=== PATIENT | female | born 1995 | race Caucasian/White ===

== ENCOUNTER → 2024-01-14 07:12 | Outpatient (REF) | payer OTHER, SELFPAY | LOC: HWRAD 07:12 | PROVIDERS: ATTENDING PHYSICIAN Nurse Practitioner Adult Health | DX: R10.31 Right lower quadrant pain (principal) | CPT/HCPCS: 76700 ==

== ENCOUNTER 2024-06-15 21:53 | Emergency (ER) | payer OTHER, SELFPAY ==
[2024-06-15 21:54] VITALS: BP 112/74
[2024-06-15 22:29] LABS: Blood Urea Nitrogen 11 mg/dl (7-17); Calcium 9.9 mg/dl (8.4-10.2); Carbon Dioxide 25 mmol/L (22-30); Chloride 100 mmol/L (98-107); Glucose 99 mg/dl (70-99); Potassium 3.9 mmol/L (3.5-5.1); Sodium 138 mmol/L (135-145); eGFR > 60.00
[2024-06-15 22:47] LABS: Hematocrit 37.5 % (37.0-47.0); Hemoglobin 14.1 g/dL (12.0-16.0); Mean Corp Hgb Conc. 37.6 g/dL (33.0-37.0); Mean Corpuscular Hgb 32.8 pg (27.0-31.0); Mean Corpuscular Volume 87.2 fL (81.0-99.0); Mean Platelet Volume 12.2 fL (7.4-10.4); Platelet Count 182 10^3/uL (130-400); Red Cell Dist. Width 12.1 % (11.5-14.5)
[2024-06-15 23:32] LABS: Beta HCG Quantitative > 300000.00 mIU/ml
[2024-06-16 00:21] VITALS: BP 107/53
[2024-06-16 00:29] VITALS: BMI 19.9
[2024-06-16 01:00] VITALS: BP 104/58
--- NOTE | 2024-06-16 01:02 | ED.GENMED ---
History of Present Illness
General
Chief Complaint: Abdominal Symptoms
Time Seen by Provider: 06/16/24 00:13
History of Present Illness
History of Present Illness:
Patient is a 28-year-old G3, P1 at 7 weeks presenting to the emergency department nausea vomiting. Patient states that during her first she also had nausea and vomiting. She does not have OB. Her appointment is scheduled for
next week. For the past few weeks she has been dealing with nausea vomiting. She was prescribed Diclegis which did not work. 2 days ago she was started on Zofran which also did not work. She does state that she tolerates p.o. but does have 1
episode of emesis a day. No abdominal pain. No diarrhea. She believes that she lost a few pounds during this .
Phy Exam
Physical Exam
Physical Exam:
GENERAL: in no acute distress
HEENT: normocephalic, extraocular movements intact, moist oral mucosa
NECK: normal inspection
RESPIRATORY: no respiratory distress, clear to auscultation bilaterally
CARDIOVASCULAR: regular rate and rhythm
ABDOMEN/: soft, non-distended, non-tender to palpation, no rebound or guarding
EXTREMITIES: non-tender, no edema/swelling
NEUROLOGIC: awake and alert, moves all extremities
SKIN: warm
Course
Orders/Labs/Results
Orders:
Orders
06/15/24 22:04
Basic Metabolic Panel Urgent
Complete Blood Count/No Diff Urgent
HCG, Beta Quantitative [Beta HCG Quantitative] Urgent
Is this a screen?: No
06/16/24 00:58
0.9% Sodium Chloride 1000 ml [Nss] 1,000 ml IV BOLUS
Ondansetron Injectable [Zofran] 4 mg IV NOW STA
06/16/24 00:59
Ondansetron Injectable [Zofran] 4 mg .ROUTE .[facility]
06/16/24 01:18
Urinalysis Reflex To Culture Urgent
Date Specimen was Collected: 06/16/24
Time Specimen was Collected: :16
Urine Microscopic Reflex Cult Urgent
Urine Culture Urgent
MARIBEL Source: U
Specimen Description:
Date Specimen was Collected: 06/16/24
Time Specimen was Collected: 01:16
Abnormal Lab Results
06/15/24 06/16/24
22:04 01:18
MCH 32.8 H pg
(27.0-31.0)
MCHC 37.6 H g/dL
(33.0-37.0)
MPV 12.2 H fL
(7.4-10.4)
Urine Ketones 3+ A
(Negative)
Leukocyte Esterase Rfl 2+ A
(Negative)
Urine RBC 3-6 A /HPF
(0-2)
Urine WBC (Reflex) 30-40 A /HPF
(0-5)
Urine Bacteria (Reflex) Moderate A
(Negative)
06/15/24 22:04
06/15/24 22:04
Vital Signs
Initial and Last Documented VS:
Initial Vital Signs
Temp Pulse Resp BP Pulse Ox
98.3 F 68 22 112/74 98
06/15/24 21:54 06/15/24 21:54 06/15/24 21:54 06/15/24 21:54 06/15/24 21:54
Last Documented Vital Signs
Temp Pulse Resp BP Pulse Ox
98.3 F 65 16 104/58 100
06/15/24 21:54 06/16/24 01:15 06/16/24 01:15 06/16/24 01:00 06/16/24 01:15
MDM/Problems Addressed
Differential Diagnosis Includes:
Patient is a 28-year-old female G3, P1 at 7 weeks presenting to the emergency department with nausea vomiting. Vitals unremarkable and exam does show a soft benign abdomen with slightly dry oral mucosa. Likely nausea vomiting rectal
related to . It is reassuring the abdominal exam is benign. Blood work obtained prior to evaluation shows normal electrolytes. Will obtain urine to evaluate for ketones as well as asymptomatic bacteriuria. Will give IV fluids. After
shared decision making we will give IV Zofran as she has tolerated that in the past before.
*Critical Care Note
Total Time (30-74mins, 75-104mins- exclusive of procedures): Not Applicable
Update Note
Update Note:
On reevaluation patient resting comfortably. She was able to tolerate p.o. Urine does show ketones. There are significant squamous epithelial cells. We did discuss about repeating urine however at this time patient would prefer to be discharged
as she is following up with her OB in a few days and will have repeat urine testing done at that time. We did discuss about starting antibiotics however given the vomiting and the stomach upset patient would prefer to hold off unless if absolutely
needed. Strict return precautions given. Will discharge at this time. She does have Zofran and Diclegis prescriptions at home.
ED Attending Note
-
Portions of this chart may have been created with voice recognition software.� Occasional wrong word or��sound alike� substitutions may have occurred due to the inherent limitations of voice recognition software.
Discharge Plan
Departure
Patient Disposition: Home (Routine Discharge)
Date of Disposition: 06/16/24
Time of Disposition: 02:02
Patient with high blood pressure during this ER visit?: No
Discharge Problem:
Vomiting during
Instructions: Morning Sickness (DC)
Prescriptions:
No Action
Vitamin Tablet
1 tab PO DAILY
acetaminophen 325 MG tablet
650 mg PO Q4HPRN PRN (Reason: mild pain) 0RF
ibuprofen 600 MG tablet
600 mg PO Q4HPRN PRN (Reason: cramps) 0RF
Referrals:
Beena Bell CRNP [Family Provider] -
Interventions
Interventions:
*Risk Screen - Suicide Last Done: 06/15/24 21:54
*General Assessment Last Done: 06/16/24 00:23
*Neglect/Abuse Screening Last Done: 06/15/24 21:54
ED- Fall Risk Assessment Last Done: 06/16/24 00:23
*ED COVID-19 Vaccine History Last Done: 06/16/24 00:23
DV-Pkntni-Osbekkizmx Assessment Last Done: 06/16/24 00:23
Discharge Date and Time
Print Language: AUSTRALIAN
[2024-06-16] MEDS: ZOFRAN 4 MG IV (01:13)
[2024-06-16] MEDS: NSS 1000 IV (01:13)
[2024-06-16 01:25] LABS: Urine Albumin Negative (Neg - Trace); Urine Bilirubin Negative (Negative); Urine Character Slightly Cloudy (Clear); Urine Color Yellow; Urine Glucose Negative (Negative); Urine Ketone 3+ (Negative); Urine Leukocyte 2+ (Negative); Urine Nitrite Negative (Negative); Urine Occult Blood Negative (Negative); Urine Specific Gravity 1.015 (<1.030); Urine Urobilinogen Negative (Neg - 1+); Urine pH 6.5 (5.0-9.0)
[2024-06-16 01:33] LABS: Urine Squamous Cell >30 /LPF (Few)
[2024-06-16 01:35] LABS: Urine Bacteria Moderate (Negative); Urine White Cell 30-40 /HPF (0-5)
[2024-06-16 02:00] VITALS: BP 99/59
== END 2024-06-16 02:15 | disposition home or self-care (01) ==
LOC: EMR 21:53
PROVIDERS: Student in an Organized Health Care Education/Training Program; EMERGENCY PHYSICIAN Student in an Organized Health Care Education/Training Program; FAMILY PHYSICIAN Nurse Practitioner Adult Health
DX: O21.9 Vomiting of pregnancy, unspecified (principal); Z3A.01 Less than 8 weeks gestation of pregnancy
CPT/HCPCS: 96374; 96361; 99284; 80048; 81003; 81015; 84702; 85027; 87086

== ENCOUNTER 2024-06-19 18:41 | Emergency (ER) | payer OTHER, SELFPAY ==
[2024-06-19 18:41] VITALS: BMI 21.4
[2024-06-19 18:52] VITALS: BP 107/74
[2024-06-19 20:46] LABS: Urine Albumin Negative (Neg - Trace); Urine Bilirubin Negative (Negative); Urine Character Clear (Clear); Urine Color Yellow; Urine Glucose Negative (Negative); Urine Ketone Negative (Negative); Urine Leukocyte Negative (Negative); Urine Nitrite Negative (Negative); Urine Occult Blood Negative (Negative); Urine Urobilinogen Negative (Neg - 1+)
[2024-06-19 21:01] LABS: ALT (SGPT) 16 U/L (0-35); AST (SGOT) 23 U/L (14-36); Albumin 4.7 g/dl (3.5-5.0); Alkaline Phosphatase 32 U/L (38-126); Blood Urea Nitrogen 10 mg/dl (7-17); Calcium 9.8 mg/dl (8.4-10.2); Carbon Dioxide 26 mmol/L (22-30); Chloride 101 mmol/L (98-107); Glucose 103 mg/dl (70-99); Potassium 3.5 mmol/L (3.5-5.1); Sodium 141 mmol/L (135-145); Total Bilirubin 0.3 mg/dl (0.2-1.3); Total Protein 7.4 g/dl (6.3-8.2); eGFR > 60.00
[2024-06-19 22:05] LABS: % Basophils 0.6 % (0-2); % Eosinophils 0.9 % (0-6); % Immature Granulocytes 0.1 % (0-0.5); % Lymphocytes 37.4 % (20.5-51.1); % Monocytes 7.6 % (1.7-9.3); % Neutrophils 53.4 % (42.2-75.2); Absolute Eosinophils 0.1 10^3/uL (0-0.7); Absolute Lymphocytes 2.5 10^3/uL (1.2-3.4); Absolute Monocytes 0.5 10^3/uL (0.1-0.6); Absolute Neutrophils 3.6 10^3/uL (1.4-6.5); Hematocrit 34.8 % (37.0-47.0); Hemoglobin 13.2 g/dL (12.0-16.0); Mean Corp Hgb Conc. 37.9 g/dL (33.0-37.0); Mean Corpuscular Hgb 32.7 pg (27.0-31.0); Mean Corpuscular Volume 86.1 fL (81.0-99.0); Mean Platelet Volume 11.5 fL (7.4-10.4); Nucleated Red Blood Cells % 0 %; Platelet Count 197 10^3/uL (130-400); Red Blood Cell Count 4.04 10^6/uL (4.20-5.40); Red Cell Dist. Width 12.1 % (11.5-14.5); White Blood Cell Count 6.7 10^3/uL (4.8-10.8)
[2024-06-19 22:18] VITALS: BP 104/68
[2024-06-19 22:28] LABS: Beta HCG Quantitative > 300000.00 mIU/ml
[2024-06-19 22:34] VITALS: BP 104/68
--- NOTE | 2024-06-19 22:55 | ED.GENMED ---
History of Present Illness
General
Chief Complaint: Problems
Source: patient and family
Exam Limitations: none
Time Seen by Provider: 06/19/24 22:20
Nursing documentation reviewed up to this point in time: agreed with
History of Present Illness
History of Present Illness:
This a pleasant 28-year-old female who is 8 weeks presents to the emergency department with vaginal spotting. Patient was seen in the emergency department on Friday of this past week for a GI bug. She is starting to feel better. She
does follow with [facility] and has her first appointment scheduled for Friday. Patient had a miscarriage 2 months ago and is concerned because of the spotting. She this is her third . Her first was
successful without any complications. Patient denies fever, chills, nausea or vomiting. Reports no chest pain or shortness of breath. Denies abdominal pain.
Review of Systems
Review of Systems
Allergies reviewed?: Yes
Other source history: family (Mother is present at the bedside)
All Other Systems: ROS reviewed and negative except as documented in HPI and ROS
Constitutional: Reports no symptoms
EENT: Reports no symptoms
Respiratory: Reports no symptoms
Cardiac: Reports no symptoms
ABD/GI: Reports no symptoms
: Reports no symptoms
Musculoskeletal: Reports no symptoms
Skin: Reports no symptoms
Neurological: Reports no symptoms
Endocrine: Reports no symptoms
Hematologic/Lymphatic: Reports no symptoms
Psychiatric: Reports no symptoms
Phy Exam
Physical Exam
Physical Exam:
Physical Exam
Vital signs and allergy list reviewed and agreed with.
GENERAL: Alert , in minimal apparent distress
EYE: pupils equal, EOMI, anicteric
NECK: Supple, no significant adenopathy. No masses. Trachea midline
ENT: Oropharynx is clear, mmm.
CARDIAC: Regular rate and rhythm . No M/R/G
LUNGS: Clear breath sounds bilaterally, no acute respiratory distress, no wheezes/rales/rhonchi
ABDOMEN: Soft, without focal tenderness, no r/g, nongravid appearing
NEUROLOGICAL: Alert and oriented, no focal neuro deficits
SKIN: Warm and dry, skin intact.
MUSCULOSKELETAL: No edema, well perfused. Moves all 4 extremities
PSYCH: Normal and appropriate interaction.
Course
Orders/Labs/Results
Orders:
Orders
06/19/24 20:26
Complete Blood Count/With Diff Urgent
Comprehensive Metabolic Panel Urgent
HCG,SERUM [Beta HCG Quantitative] Urgent
Is this a screen?: No
06/19/24 20:27
Urinalysis Reflex To Culture Urgent
Date Specimen was Collected: 06/19/24
Time Specimen was Collected: 20:24
06/19/24 22:20
US 1st Trimester Urgent
Comment:
Reason For Exam: spotting, cramping, 8 wks preg
Abnormal Lab Results
06/19/24
20:26
RBC 4.04 L 10^6/uL
(4.20-5.40)
Hct 34.8 L %
(37.0-47.0)
MCH 32.7 H pg
(27.0-31.0)
MCHC 37.9 H g/dL
(33.0-37.0)
MPV 11.5 H fL
(7.4-10.4)
Glucose 103 H mg/dl
(70-99)
Alkaline Phosphatase 32 L U/L
(38-126)
06/19/24 20:26
06/19/24 20:26
Vital Signs
Initial and Last Documented VS:
Initial Vital Signs
Temp Pulse Resp BP Pulse Ox
98.5 F 100 20 107/74 99
06/19/24 18:52 06/19/24 18:52 06/19/24 18:52 06/19/24 18:52 06/19/24 18:52
Last Documented Vital Signs
Temp Pulse Resp BP Pulse Ox
98.5 F 71 18 104/68 99
06/19/24 18:52 06/20/24 01:07 06/20/24 01:07 06/19/24 22:34 06/20/24 01:07
Information
Weeks gestation: Weeks: (8)
Location: Location: (Intrauterine)
*Critical Care Note
Total Time (30-74mins, 75-104mins- exclusive of procedures): Not Applicable
Update Note
Update Note:
OB/PELVIC US:
IMPRESSION:
1. There is a single intrauterine gestation with crown-rump length of 1.87 cm corresponding to a gestational age of 8 weeks 3 days.
2. Cardiac activity detected at 165 bpm.
3. The ovaries and adnexa appear normal (with probable corpus luteum follicle on the right).
4. Small perigestational hemorrhage 3.2 x 2.8 x 1.0 cm.
Follow-up per OB and US as clinically indicated.
ED Attending Note
-
Portions of this chart may have been created with voice recognition software.� Occasional wrong word or��sound alike� substitutions may have occurred due to the inherent limitations of voice recognition software.
Discharge Plan
Departure
Patient Disposition: Home (Routine Discharge)
Date of Disposition: 06/20/24
Time of Disposition: 00:44
Patient with high blood pressure during this ER visit?: Yes
Condition: Good
Discharge Problem:
Threatened miscarriage
Instructions: Threatened Miscarriage (DC)
Prescriptions:
No Action
Vitamin Tablet
1 tab PO DAILY
acetaminophen 325 MG tablet
650 mg PO Q4HPRN PRN (Reason: mild pain) 0RF
ibuprofen 600 MG tablet
600 mg PO Q4HPRN PRN (Reason: cramps) 0RF
Referrals:
Rosemary Mane, DO [Active] - Keep scheduled appt
Hina James MD [Family Provider] -
Activity Restrictions/Additional Instructions:
It was a pleasure meeting you and taking part in your care. We hope for your continued healing and wellness.
Please read discharge instructions in their entirety. However, they are for general education and may not describe your exact diagnosis at discharge. Information on your ER visit and medical conditions were discussed with you along with appropriate
follow up information...
If indicated, please take your medications as instructed and indicated on discharge paperwork.
Please schedule a follow up appointment as directed. Call to schedule an appointment
Please return to the emergency department with ANY change in, persisting, or worsening of symptoms. If any of your symptoms do not improve, or persist, or become more severe within 6-12 hours, please return to the emergency department for further
care.
Please return to the emergency department if you develop a headache, neck pain/stiffness, fever greater than 100.4F, chest pain, shortness of breath, persistent nausea, vomiting, slurred speech, difficulty walking, numbness/tingling, weakness, signs
of infection or any other symptoms that are worrisome to you.
If you have any questions or concerns please do not hesitate to call the Hospital at or E-mail me directly at [email or web address]
Interventions
Interventions:
*Risk Screen - Suicide Last Done: 06/19/24 18:52
*General Assessment Last Done: 06/19/24 18:52
*Neglect/Abuse Screening Last Done: 06/19/24 18:52
ED- Fall Risk Assessment Last Done: 06/19/24 18:52
*ED COVID-19 Vaccine History Last Done: 06/19/24 18:52
*Nursing Disposition Last Done: 06/20/24 01:07
ED-Female Genitourinary Assessment Last Done: 06/19/24 23:48
Discharge Date and Time
Discharge Date/Time: 06/20/24 01:08
Print Language: [id number]
== END 2024-06-20 01:08 | disposition home or self-care (01) ==
LOC: EMR 18:41
PROVIDERS: EMERGENCY PHYSICIAN Student in an Organized Health Care Education/Training Program; FAMILY PHYSICIAN Family Medicine
DX: O20.0 Threatened abortion (principal); Z3A.08 8 weeks gestation of pregnancy; R03.0 Elevated blood-pressure reading, without diagnosis of hypertension; Z91.040 Latex allergy status
CPT/HCPCS: 99284; 76801; 80053; 81003; 84702; 85025

== ENCOUNTER → 2024-07-19 14:02 | Outpatient (REF) | payer OTHER, SELFPAY | LOC: PNTC 14:02 | PROVIDERS: ATTENDING PHYSICIAN Nurse Practitioner Family | DX: Z36.0 Encounter for antenatal screening for chromosomal anomalies (principal); Z36.82 Encounter for antenatal screening for nuchal translucency | CPT/HCPCS: 76801; 76813 ==

== ENCOUNTER → 2024-09-13 14:52 | Outpatient (REF) | payer OTHER, SELFPAY | LOC: PNTC 14:52 | PROVIDERS: ATTENDING PHYSICIAN Nurse Practitioner Family | DX: E03.9 Hypothyroidism, unspecified (principal); O99.280 Endocrine, nutritional and metabolic diseases complicating pregnancy, unspecified trimester | CPT/HCPCS: 76811 ==

== ENCOUNTER 2024-09-26 21:34 | Emergency (ER) | payer OTHER, SELFPAY ==
[2024-09-26 21:36] VITALS: BP 113/49
[2024-09-26] MEDS: TYLENOL 650 MG PO (21:55)
[2024-09-26 22:12] LABS: Urine Albumin 1+ (Neg - Trace); Urine Bilirubin Negative (Negative); Urine Character Clear (Clear); Urine Color Yellow; Urine Glucose Negative (Negative); Urine Ketone Negative (Negative); Urine Leukocyte 1+ (Negative); Urine Nitrite Negative (Negative); Urine Occult Blood Negative (Negative); Urine Urobilinogen Negative (Neg - 1+)
[2024-09-26 22:21] LABS: Urine Amorphous Seen; Urine Squamous Cell 26-30 /LPF (Few)
[2024-09-26 22:23] LABS: Urine Bacteria Many (Negative); Urine Red Blood Cell 0-2 /HPF (0-2)
[2024-09-26 22:41] LABS: % Basophils 0.4 % (0-2); % Immature Granulocytes 0.5 % (0-0.5); % Monocytes 7.2 % (1.7-9.3); % Neutrophils 84.9 % (42.2-75.2); Absolute Immature Granulocytes 0.1 10^3/uL (0-0.05); Absolute Lymphocytes 0.8 10^3/uL (1.2-3.4); Absolute Monocytes 0.8 10^3/uL (0.1-0.6); Absolute Neutrophils 9.4 10^3/uL (1.4-6.5); Hematocrit 32.5 % (37.0-47.0); Hemoglobin 11.9 g/dL (12.0-16.0); Mean Corp Hgb Conc. 36.6 g/dL (33.0-37.0); Mean Corpuscular Hgb 34.6 pg (27.0-31.0); Mean Corpuscular Volume 94.5 fL (81.0-99.0); Mean Platelet Volume 11.4 fL (7.4-10.4); Nucleated Red Blood Cells % 0 %; Platelet Count 160 10^3/uL (130-400); Red Blood Cell Count 3.44 10^6/uL (4.20-5.40)
[2024-09-26 23:05] LABS: ALT (SGPT) 15 U/L (0-35); AST (SGOT) 21 U/L (14-36); Alkaline Phosphatase 63 U/L (38-126); Blood Urea Nitrogen 6 mg/dl (7-17); Calcium 8.4 mg/dl (8.4-10.2); Carbon Dioxide 27 mmol/L (22-30); Chloride 102 mmol/L (98-107); Glucose 96 mg/dl (70-99); Potassium 3.9 mmol/L (3.5-5.1); Sodium 137 mmol/L (135-145); Total Bilirubin 0.7 mg/dl (0.2-1.3); eGFR > 60.00
[2024-09-26 23:08] LABS: COVID-19 Antigen Negative (Negative)
--- NOTE | 2024-09-27 00:41 | ED.GENMED ---
History of Present Illness
General
Chief Complaint: Cardiac Symptoms
Source: patient and spouse
Time Seen by Provider: 09/27/24 00:09
History of Present Illness
History of Present Illness:
28-year-old female who presents with cough, fever and some palpitations. Patient states that she started have headache as well. was sick yesterday with a fever and a cough. Today feels a little better but still with a cough. Patient was
mostly concerned about her heart rate. Patient has normal movement. She is about 22 weeks . She denies any dysuria. No hematuria. No vaginal bleeding. No abdominal pain.
Past History
Past History
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
ED Past Surgical History:
Phy Exam
Physical Exam
Physical Exam:
CONSTITUTIONAL Patient alert and oriented to person, place and time. Well-appearing. Vital signs reviewed.
HEAD atraumatic, normocephalic.
EYES eyelids normal to inspection, Extraocular muscles intact, Conjunctiva normal, Sclera normal.
NECK normal range of motion, Trachea midline, no jugular venous distention.
RESPIRATORY CHEST No respiratory distress noted, Chest expansion equal, Bilateral breath sounds clear.
CARDIOVASCULAR regular rate and rhythm, Heart sounds normal. Heart rate 108 on exam
ABDOMEN abdomen nontender, Bowel sounds normal. Gravid uterus just above the umbilicus
BACK normal inspection, no obvious deformities
UPPER EXTREMITY range of motion normal, Motor strength normal, no cyanosis, no edema.
LOWER EXTREMITY range of motion normal, Motor strength normal, no cyanosis, no edema.
NEURO Speech normal, No focal motor deficits, Osiel coma scale 15, Memory normal, Cranial Nerves intact to screening exam.
SKIN skin warm, dry, and normal in color.
Sepsis
Sepsis Screening
Sepsis Assessment: Sepsis Ruled Out
Sepsis Screen
Sepsis Screen: Sepsis Ruled Out
Date: 09/27/24
Time: 02:57
Course
Orders/Labs/Results
Orders:
Orders
09/26/24 21:44
EKG [Electrocardiogram (*1)] Urgent
Reason for Study: Chest Pain
EKG- Treatment ONCE
09/26/24 21:53
Acetaminophen [Tylenol] 650 mg .ROUTE .[facility] ONE
09/26/24 21:54
Acetaminophen [Tylenol] 650 mg PO NOW STA
09/26/24 21:55
COVID-19 Antigen Urgent
Source: Nasal Swab
Complete Blood Count/With Diff Urgent
Comprehensive Metabolic Panel Urgent
Influenza A+B Rapid Molecular Urgent
MARIBEL Source: Nasal Swab
Specimen Description:
09/26/24 22:05
Urinalysis Reflex To Culture Urgent
Date Specimen was Collected: 09/26/24
Time Specimen was Collected: 22:02
Urine Microscopic Reflex Cult Urgent
Urine Culture Urgent
MARIBEL Source: U
Specimen Description:
Date Specimen was Collected: 09/26/24
Time Specimen was Collected: 22:02
09/26/24 23:41
COVID-19 Antigen Urgent
Comment: RECOLLECT
Influenza A+B Rapid Molecular Urgent
MARIBEL Source: NSWAB
Specimen Description:
Comment: RECOLLECT
09/27/24 00:42
Oseltamivir Phosphate [Tamiflu] 75 mg PO NOW STA
Abnormal Lab Results
09/26/24 09/26/24
21:55 22:05
WBC 11.0 H 10^3/uL
(4.8-10.8)
RBC 3.44 L 10^6/uL
(4.20-5.40)
Hgb 11.9 L g/dL
(12.0-16.0)
Hct 32.5 L %
(37.0-47.0)
MCH 34.6 H pg
(27.0-31.0)
MPV 11.4 H fL
(7.4-10.4)
Abs Immat Gran (auto) 0.1 H 10^3/uL
(0-0.05)
Absolute Neuts (auto) 9.4 H 10^3/uL
(1.4-6.5)
Absolute Lymphs (auto) 0.8 L 10^3/uL
(1.2-3.4)
Absolute Monos (auto) 0.8 H 10^3/uL
(0.1-0.6)
Neutrophils % 84.9 H %
(42.2-75.2)
Lymphocytes % 7.0 L %
(20.5-51.1)
BUN 6 L mg/dl
(7-17)
Leukocyte Esterase Rfl 1+ A
(Negative)
Urine Bacteria (Reflex) Many A
(Negative)
Urine Albumin (Reflex) 1+ A
(Neg - Trace)
09/26/24 21:55
09/26/24 21:55
Vital Signs
Pulse: 108
Initial and Last Documented VS:
Initial Vital Signs
Temp Pulse Resp BP Pulse Ox
100.2 F 130 18 113/49 100
09/26/24 21:36 09/26/24 21:36 09/26/24 21:36 09/26/24 21:36 09/26/24 21:36
Last Documented Vital Signs
Temp Pulse Resp BP Pulse Ox
100.2 F 112 18 103/54 99
09/26/24 21:36 09/27/24 01:56 09/27/24 01:56 09/27/24 01:56 09/27/24 01:56
MDM/Problems Addressed
MDM/Problems Addressed:
Influenza, palpitations, 22 weeks
*Pulse Oximetry
Patient hypoxic: no
*[employer] Sales[employer] Interpretation
Rate: tachycardiac
Interpretation: normal
Rhythm: sinus
*Critical Care Note
Total Time (30-74mins, 75-104mins- exclusive of procedures): Not Applicable
Data Reviewed
Source: patient and spouse (Spouse adds that he was sick)
Prescriptions/Medications Considered But Not Given:
Consider antibiotics but influenza positive. Treat with Tamiflu
Patient Management
Escalation/DeEscalation of care consider admission/obs:
Patient appears well. Given her , treat with Tamiflu that she is less than 24 hours into her illness. Recommended Tylenol for fever control and increase fluid intake. Outpatient follow-up recommended. heart is normal
ED Attending Note
-
Portions of this chart may have been created with voice recognition software.� Occasional wrong word or��sound alike� substitutions may have occurred due to the inherent limitations of voice recognition software.
Discharge Plan
Departure
Patient Disposition: Home (Routine Discharge)
Date of Disposition: 09/27/24
Time of Disposition: 01:49
Patient with high blood pressure during this ER visit?: No
Discharge Problem:
Influenza
Instructions: Flu
Prescriptions:
New
oseltamivir [Tamiflu] 75 mg capsule
75 mg PO BID 5 Days Qty: 10 0RF
No Action
Vitamin Tablet
1 tab PO DAILY
acetaminophen 325 MG tablet
650 mg PO Q4HPRN PRN (Reason: mild pain) 0RF
ibuprofen 600 MG tablet
600 mg PO Q4HPRN PRN (Reason: cramps) 0RF
Referrals:
UNKNOWN - PT NOT,INTERVIEWE [Family Provider] -
Activity Restrictions/Additional Instructions:
Please drink plenty fluids and use Tylenol for fever control. Return immediately for vomiting that is intractable, changes in mentation, any obstetrical complaints to include abdominal pain, bleeding or any other concerns. Please have your OB
follow-up on your urine culture.
Interventions
Interventions:
*Risk Screen - Suicide Last Done: 09/27/24 01:30
*General Assessment Last Done: 09/27/24 01:11
*Neglect/Abuse Screening Last Done: 09/27/24 01:30
ED- Fall Risk Assessment Last Done: 09/27/24 00:39
*ED COVID-19 Vaccine History Last Done: 09/27/24 01:11
*Nursing Disposition Last Done: 09/27/24 02:15
ED- Pulmonary Assessment Last Done: 09/27/24 00:39
ED- Cardiac Assessment Last Done: 09/27/24 00:39
Discharge Date and Time
Discharge Date/Time: 09/27/24 02:18
Print Language: YEMENI
[2024-09-27 00:42] VITALS: BP 96/58; BMI 24.2
[2024-09-27 01:00] VITALS: BP 104/58
[2024-09-27 01:33] LABS: COVID-19 Antigen Negative (Negative)
[2024-09-27 01:56] VITALS: BP 103/54
[2024-09-27] MEDS: TAMIFLU 75 MG PO (01:58)
== END 2024-09-27 02:18 | disposition home or self-care (01) ==
LOC: EMR 21:34
PROVIDERS: Student in an Organized Health Care Education/Training Program; EMERGENCY PHYSICIAN Emergency Medicine
DX: O99.891 Other specified diseases and conditions complicating pregnancy (principal); J10.1 Influenza due to other identified influenza virus with other respiratory manifestations; Z3A.22 22 weeks gestation of pregnancy; O99.282 Endocrine, nutritional and metabolic diseases complicating pregnancy, second trimester; E06.3 Autoimmune thyroiditis; R00.2 Palpitations
CPT/HCPCS: 99283; 80053; 81003; 81015; 85025; 87086; 87502; 87811; 93005

== ENCOUNTER → 2024-10-11 10:46 | Outpatient (REF) | payer OTHER, SELFPAY | LOC: PNTC 10:46 | PROVIDERS: ATTENDING PHYSICIAN Obstetrics & Gynecology | DX: Q66.89 Other specified congenital deformities of feet (principal) | CPT/HCPCS: 76816 ==

== ENCOUNTER → 2024-11-08 10:50 | Outpatient (REF) | payer OTHER, SELFPAY | LOC: PNTC 10:50 | PROVIDERS: ATTENDING PHYSICIAN Obstetrics & Gynecology | DX: O35.HXX0 Maternal care for other (suspected) fetal abnormality and damage, fetal lower extremities anomalies, not applicable or unspecified (principal) | CPT/HCPCS: 76816 ==

== ENCOUNTER → 2024-12-06 10:37 | Outpatient (REF) | payer OTHER, SELFPAY | LOC: PNTC 10:37 | PROVIDERS: ATTENDING PHYSICIAN Obstetrics & Gynecology | DX: O43.199 Other malformation of placenta, unspecified trimester (principal); Q66.00 Congenital talipes equinovarus, unspecified foot; O35 Maternal care for known or suspected fetal abnormality and damage | CPT/HCPCS: 76816 ==

== ENCOUNTER → 2024-12-08 12:46 | Outpatient (REF) | payer OTHER, SELFPAY | LOC: PNTC 12:46 | PROVIDERS: ATTENDING PHYSICIAN Obstetrics & Gynecology | DX: R10.9 Unspecified abdominal pain (principal) | CPT/HCPCS: 59025 ==

== ENCOUNTER → 2025-01-04 08:40 | Outpatient (REF) | payer OTHER, SELFPAY | LOC: PNTC 08:40 | PROVIDERS: ATTENDING PHYSICIAN Obstetrics & Gynecology | DX: O35 Maternal care for known or suspected fetal abnormality and damage (principal); O43.199 Other malformation of placenta, unspecified trimester | CPT/HCPCS: 76816 ==

== ENCOUNTER 2025-01-25 05:49 | Inpatient (IN) | payer OTHER, SELFPAY ==
[2025-01-25 06:17] VITALS: BP 127/67; BMI 26.7
[2025-01-25] MEDS: LR 1000 IV ×4 (07:15→22:16)
[2025-01-25 07:42] LABS: % Basophils 0.5 % (0-2); % Eosinophils 0.8 % (0-6); % Immature Granulocytes 0.6 % (0-0.5); % Lymphocytes 20.2 % (20.5-51.1); % Monocytes 8.8 % (1.7-9.3); % Neutrophils 69.1 % (42.2-75.2); Absolute Eosinophils 0.1 10^3/uL (0-0.7); Absolute Immature Granulocytes 0.1 10^3/uL (0-0.05); Absolute Lymphocytes 1.8 10^3/uL (1.2-3.4); Absolute Monocytes 0.8 10^3/uL (0.1-0.6); Absolute Neutrophils 6.1 10^3/uL (1.4-6.5); Hematocrit 31.5 % (37.0-47.0); Hemoglobin 11.1 g/dL (12.0-16.0); Mean Corp Hgb Conc. 35.2 g/dL (33.0-37.0); Mean Corpuscular Hgb 31.3 pg (27.0-31.0); Mean Corpuscular Volume 88.7 fL (81.0-99.0); Mean Platelet Volume 11.8 fL (7.4-10.4); Nucleated Red Blood Cells % 0 %; Platelet Count 269 10^3/uL (130-400); Red Blood Cell Count 3.55 10^6/uL (4.20-5.40); Red Cell Dist. Width 15.1 % (11.5-14.5); White Blood Cell Count 8.9 10^3/uL (4.8-10.8)
[2025-01-25] MEDS: FENTANYL/BUPIVACAINE 100 EPIDURAL ×2 (12:05→20:25)
[2025-01-25] MEDS: SUBLIMAZE 100 MCG EPIDURAL (12:07)
[2025-01-25] MEDS: TUMS CHEWABLE TABLET 400 MG PO (19:56)
--- NOTE | 2025-01-25 21:33 | HPS.HSE ---
Family Physician
-
Family Physician: INTERVIEWE UNKNOWN - PT NOT
Chief Complaint
-
leakage of fluid
History of Present Illness
HPI: Patient is a 29yo @39.6 who presented this morning with complaints of leakage of clear fluid since 0300. She reports contractions starting shortly after. Denies VB. +FM
complications
- Hx C/Sx1 for arrest of dilation
- Marginal cord insertion
- Bilateral club feet
- Hypothyroid
PMHx: hypothyroidism
Meds: Synthroid 100mcg
Surghx: C/Sx1
All: latex
Socialhx: denies tobacco, etoh or illicit drug use
Famhx: non-contributory
OBHx: PLTCS for arrest of dilation, SABx1
labs: A+, Ab neg, RPR non reactive, UCx neg, HBsAg neg, HIV neg, GCCT neg, Rubella immune, Hep C neg, 1hr 113, GBS neg
FHT: 140 baseline/moderate variability/+accelerations/no decelerations
[place]: ctx q6-10 min
Medical History
Past Medical History
Past Medical History: Reports Hypothyroidism
Past Surgical History: Reports
Social History
Tobacco: Non-smoker
Alcohol: None
Drug: None
Family History
Family History: Not pertinent
Allergies / Home Medications
Allergies reflects when Allergies were last updated in [facility] [employer].
Home Medications with original date entered in [facility] [facility]
Allergy/Medication List:
Meds: Synthroid 100mcg daily, PNV
All: latex- rash
Review of Systems
-
A 12 point ROS was completed and negative except as noted: Yes
Physical Exam
Vital Signs
Vital Signs
Temp Pulse Resp BP Pulse Ox
98.5 F 91 18 127/67 100
01/25/25 06:17 01/25/25 06:17 01/25/25 06:17 01/25/25 06:17 01/25/25 06:17
Physical Exam
General: Well Developed and Well Nourished
HEENT: NormoCephalic
Respiratory: Non Labored Respirations
Cardiac: Regular Rhythm
Skin: Warm and Dry
Psych: Calm
Laboratory Results
-
01/25/25 07:20
Impression/Plan
-
IMPRESSION:
29yo @39.6 SROM, TOLAC
PLAN:
- Expectant management
- Discussed AROM of forebag. Pt declines at this time and would like to wait for her to come back
- consent reviewed and sign. Risks of uterine rupture with risk of maternal and/or reviewed.
- C/S consents were previously signed in the office in case of need for RCS
[2025-01-25] MEDS: PITOCIN 30 UNITS/NSS 500 ML IV (22:35)
[2025-01-26] MEDS: TYLENOL 650 MG PO ×3 (02:33→18:16)
[2025-01-26 04:42] LABS: Hematocrit 30.5 % (37.0-47.0); Hemoglobin 10.4 g/dL (12.0-16.0)
[2025-01-26] MEDS: MOTRIN 600 MG PO ×2 (05:52→16:09)
[2025-01-26] MEDS: SYNTHROID 75 MCG PO (06:52)
[2025-01-26] MEDS: PRENATAL PLUS 1 TABLET PO (09:37)
[2025-01-26] MEDS: SENOKOT-S 1 TABLET PO (09:37)
[2025-01-27] MEDS: MOTRIN 600 MG PO (05:32)
[2025-01-27] MEDS: SYNTHROID 75 MCG PO (05:32)
[2025-01-27] MEDS: PRENATAL PLUS 1 TABLET PO (08:59)
[2025-01-28 13:44] LABS: Syphilis/T. pallidum Ab Reflex Negative (Negative)
== END 2025-01-27 12:02 | disposition home or self-care (01) | DRG 807 ==
LOC: LDRP 05:49
PROVIDERS: Student in an Organized Health Care Education/Training Program; ADMITTING PHYSICIAN Obstetrics & Gynecology
PROC: 10907ZC Drainage of Amniotic Fluid, Therapeutic from Products of Conception, Via Natural or Artificial Opening (ICD-10-PCS; 2025-01-25)
PROC: 10E0XZZ Delivery of Products of Conception, External Approach (ICD-10-PCS; 2025-01-25)
PROC: 0KQM0ZZ Repair Perineum Muscle, Open Approach (ICD-10-PCS; 2025-01-25)
DX: O34.219 Maternal care for unspecified type scar from previous cesarean delivery (principal); Z37.0 Single live birth; Z3A.39 39 weeks gestation of pregnancy; O43.123 Velamentous insertion of umbilical cord, third trimester; O70.1 Second degree perineal laceration during delivery; E03.9 Hypothyroidism, unspecified; O99.284 Endocrine, nutritional and metabolic diseases complicating childbirth; O90.81 Anemia of the puerperium; D64.9 Anemia, unspecified; Z91.040 Latex allergy status
CPT/HCPCS: 88307; 85014; 85018; 85025; 86780; 86850; 86900; 86901